=== PATIENT | female | born 1955 | race Caucasian/White ===

== ENCOUNTER 2017-05-26 07:07 | Day surgery (SDC) | payer BC ==
[2017-05-24 16:11] LABS: Urine RBC None Seen /hpf (0 - 4)
[2017-05-24 16:30] LABS: Basophils # (auto) 0.1 uL; Basophils % (auto) 0.9 % (0.0-2.0); CONDITION Y; Eosinophils # (auto) 0.3 uL; Eosinophils % (auto) 3.3 % (0.0-7.0); Hematocrit 42.6 % (36.0-46.0); Hemoglobin 14.5 g/dL (12.2-16.2); Lymphocytes # (auto) 2.3 uL; Lymphocytes % (auto) 25.6 % (10.0-50.0); Mean Corpuscular Hemoglobin 29.3 pg (28.0-32.0); Mean Corpuscular Hgb Conc. 34.1 g/dL (32.0-36.0); Mean Corpuscular Volume 85.8 fL (80.0-100.0); Mean Platelet Volume 9.4 fL (7.4-10.4); Monocytes # (auto) 0.7 uL; Monocytes % (auto) 8.2 % (0.0-12.0); Neutrophils # (auto) 5.5 uL; Platelet Count (auto) 310 10^3/uL (140-450); Red Cell Distribution Width 14.3 % (11.6-16.0); White Blood Cell 8.9 10^3/uL (4.4-10.8)
[2017-05-24 16:45] LABS: Urine Bilirubin Negative (Negative); Urine Blood Negative /uL (Negative); Urine Color Colorless (Yellow); Urine Glucose Normal (Normal); Urine Ketone Negative (Negative); Urine Nitrite Negative (Negative); Urine Urobilinogen Normal (Negative); Urine pH 5.5 (5.0-8.0)
[2017-05-24 16:55] LABS: INR 0.91 (0.9-1.15); Partial Thromboplastin Time 26.6 sec (22.64-33.71); Prothrombin Time 9.9 sec (9.37-12.3)
[2017-05-24 16:56] LABS: Albumin 4.1 g/dL (3.4-5.0); BUN/Creatinine Ratio 16.2; Bilirubin, Total 0.4 mg/dL (0.2-1.0); Calcium 9.5 mg/dL (8.5-10.1); Potassium 3.5 mmol/L (3.5-5.1); Total Protein 7.9 g/dL (6.4-8.2)
[~2017-05-26] VITALS: Ht 172.7 cm; Wt 84.4 kg
[~2017-05-26 07:07] MED LIST: ACET-1304 PO; ALBUAER3 IN; ASCO100076 PO; BACL10TA PO; BECL80AE9 IN; CYCL0.05 EACHEYE; ERGO1CAP6 PO; FERR18TA2 PO; GABA-497 PO; HYDR-4663 PO; IBUP200T76 PO; LIDO5DIS21 TOP; LISI-285 PO; MONT10TA23 PO; ROSU5TAB5 PO
[2017-05-26] MEDS ORDERED: LEVOFLOXACIN 500MG 100 ML IV ONE (07:59)
[2017-05-26] MEDS ORDERED: ONDANSETRON HCL 4 MG/2 ML VIAL ONE (09:03)
[2017-05-26] MEDS ORDERED: PROPOFOL 10 MG/ML 20 ML IV ONE (09:03)
[2017-05-26] MEDS ORDERED: MIDAZOLAM HCL 1MG/1ML-2 ML VIAL ONE (09:03)
[2017-05-26] MEDS ORDERED: fentaNYL CITRATE 100 MCG/2 ML VL ONE (09:03)
[2017-05-26] MEDS ORDERED: LIDOCAINE HCL 2 %PF INJ 10ML AMP IJ ONE (09:03)
[2017-05-26] MEDS ORDERED: SODIUM CHLORIDE LOCK 20 ML ONE (09:03)
[2017-05-26] MEDS ORDERED: LIDOCAINE 1% HCL (LOCAL ANESTH.) INJ 20ML MDV ONE (09:43)
[2017-05-26] MEDS ORDERED: CONJ ESTROGENS 0.625MG/GM VAG CRM 30GM PV ONE (09:44)
[2017-05-26] MEDS ORDERED: LIDOCAINE W/ EPINEPHRINE 1 % INJ 30ML ONE (09:44)
[2017-05-26] MEDS ORDERED: CLINDAMYCIN 600MG IV 50 ML IV ONE (09:56)
[2017-05-26] MEDS ORDERED: METOCLOPRAMIDE HCL 5MG/ml INJ 2ml VIAL IV ONE (10:15)
[2017-05-26] MEDS ORDERED: KETOROLAC TROMETH 30 MG/ML 1ML VIAL IV ONE (10:15)
[2017-05-26] MEDS: HYDROmorphone HCL 2 MG/ML VL IV PRN ×2 (10:55→11:15)
[2017-05-26 12:00] VITALS: BP 127/87
== END 2017-05-26 12:11 | disposition home or self-care (01) ==
LOC: SUR 07:07
PROVIDERS: ATTEND Urology
DX: N89.8 Other specified noninflammatory disorders of vagina (principal); N81.10 Cystocele, unspecified; J45.909 Unspecified asthma, uncomplicated; K21.9 Gastro-esophageal reflux disease without esophagitis; D64.9 Anemia, unspecified; Z90.710 Acquired absence of both cervix and uterus; I10 Essential (primary) hypertension; I49.9 Cardiac arrhythmia, unspecified; E78.5 Hyperlipidemia, unspecified; I49.3 Ventricular premature depolarization; F32.9 Major depressive disorder, single episode, unspecified; M19.90 Unspecified osteoarthritis, unspecified site; Z85.3 Personal history of malignant neoplasm of breast; Z90.49 Acquired absence of other specified parts of digestive tract; Z90.13 Acquired absence of bilateral breasts and nipples; Z88.2 Allergy status to sulfonamides
CPT/HCPCS: 36415; 57106; 57240; 57282; 80053; 81001; 85025; 85610; 85730; 87086; 88302; J1170; J1956; J2001; J2250; J2405; J2704; J2765; J3010; J3490

== ENCOUNTER 2017-06-13 21:51 | Inpatient (IN) | payer BC ==
[~2017-06-13] VITALS: Ht 172.7 cm; Wt 84.1 kg
[2017-06-13 23:32] LABS: Basophils # (auto) 0.1 uL; Basophils % (auto) 0.5 % (0.0-2.0); CONDITION Y; Eosinophils # (auto) 0.3 uL; Eosinophils % (auto) 1.9 % (0.0-7.0); Hematocrit 42.1 % (36.0-46.0); Hemoglobin 13.9 g/dL (12.2-16.2); Lymphocytes % (auto) 14.2 % (10.0-50.0); Mean Corpuscular Hemoglobin 28.9 pg (28.0-32.0); Mean Corpuscular Volume 87.4 fL (80.0-100.0); Mean Platelet Volume 8.9 fL (7.4-10.4); Monocytes # (auto) 0.9 uL; Monocytes % (auto) 6.5 % (0.0-12.0); Neutrophils # (auto) 10.9 uL; Neutrophils % (auto) 76.9 % (37.0-80.0); Platelet Count (auto) 312 10^3/uL (140-450); Red Cell Distribution Width 13.8 % (11.6-16.0); White Blood Cell 14.2 10^3/uL (4.4-10.8)
[2017-06-13 23:35] LABS: Urine Bilirubin Negative (Negative); Urine Color Yellow (Yellow); Urine Glucose Normal (Normal); Urine Ketone Negative (Negative); Urine Nitrite Negative (Negative); Urine RBC 11 /hpf (0 - 4); Urine Urobilinogen Normal (Negative); Urine pH 5.5 (5.0-8.0)
[2017-06-13 23:37] LABS: Urine Blood 1+ /uL (Negative)
[2017-06-13 23:56] LABS: Albumin 3.7 g/dL (3.4-5.0); Calcium 8.9 mg/dL (8.5-10.1); Potassium 3.8 mmol/L (3.5-5.1)
[2017-06-13 23:59] LABS: Bilirubin, Total 0.4 mg/dL (0.2-1.0); Total Protein 7.5 g/dL (6.4-8.2)
[2017-06-14] MEDS ORDERED: PANTOPRAZOLE 40 MG/10 ML VIAL IV STA (03:09)
[2017-06-14] MEDS ORDERED: ONDANSETRON HCL 4 MG/2 ML VIAL IV ONE (03:15)
[2017-06-14] MEDS ORDERED: HYDROmorphone HCL 2 MG/ML VL IV ONE (03:15)
[2017-06-14 04:04] LABS: INR 0.92 (0.9-1.15); Partial Thromboplastin Time 26.9 sec (22.64-33.71)
[2017-06-14 04:12] LABS: Amylase 52 U/L (25-115)
[2017-06-14] MEDS ORDERED: cefTRIAXone 1GM/50ML D5W 50 ML IV ONE (06:15)
[2017-06-14] MEDS ORDERED: TEMAZEPAM 15 MG CAP PO PRN (07:15)
[2017-06-14] MEDS ORDERED: KETOROLAC TROMETH 30 MG/ML 1ML VIAL IV PRN (07:15)
[2017-06-14] MEDS ORDERED: ACETAMINOPHEN 325 MG TAB PO PRN (07:15)
[2017-06-14] MEDS ORDERED: ALBUTEROL SULF 2.5 MG/0.5ML(0.5%) NEB SOLN NEB PRN (07:15)
[2017-06-14] MEDS ORDERED: ONDANSETRON HCL 4 MG/2 ML VIAL IV PRN (07:15)
[2017-06-14] MEDS: SODIUM CHLORIDE 0.9% 1,000 ML IV SCH ×2 (07:30→20:24)
[2017-06-14] MEDS: LEVOFLOXACIN 500MG 100 ML IV SCH (07:31)
[2017-06-14] MEDS ORDERED: HCTZ 25 MG TAB PO SCH (10:00)
[2017-06-14] MEDS: ENOXAPARIN SOD 40 MG/0.4 ML SYRINGE SC SCH ×2 (10:00→10:20)
[2017-06-14 10:02] VITALS: BP 131/78
[2017-06-14] MEDS: FAMOTIDINE 20 MG TAB PO SCH ×2 (10:19→21:26)
[2017-06-14] MEDS: MONTELUKAST SODIUM 10 MG TAB PO SCH (10:19)
[2017-06-14] MEDS: LISINOPRIL 5 MG TAB PO SCH (10:20)
[2017-06-14] MEDS: HYDROcodone-ACET 5/325MG TAB PO PRN ×2 (10:45→21:26)
[2017-06-14 12:50] VITALS: BP 115/54
[2017-06-14] MEDS ORDERED: HYDROmorphone HCL 2 MG/ML VL IV PRN (15:30)
[2017-06-14] MEDS: GABAPENTIN 300 MG CAP PO SCH ×2 (16:21→21:26)
[2017-06-14 16:49] VITALS: BP 99/53
[2017-06-14 18:52] VITALS: BP 131/78
[2017-06-14] MEDS: ATORVASTATIN 20 MG TAB PO SCH (21:26)
[2017-06-14] MEDS: hydrOXYzine PAMOATE 25 MG CAP PO PRN (21:26)
[2017-06-14 22:00] VITALS: BP_SYST 111; BP_SYST 128; BP_DIAS 64; BP_DIAS 73
[2017-06-14] MEDS ORDERED: CRESTOR 5 MG PO SCH (22:00)
[2017-06-15] VITALS (7 sets, daily range): BP systolic 95–131; BP diastolic 52–78
[2017-06-15 05:19] LABS: Basophils # (auto) 0 uL; Basophils % (auto) 0.8 % (0.0-2.0); CONDITION Y; Eosinophils # (auto) 0.4 uL; Eosinophils % (auto) 6.2 % (0.0-7.0); Hematocrit 38.9 % (36.0-46.0); Lymphocytes # (auto) 2.4 uL; Lymphocytes % (auto) 40.7 % (10.0-50.0); Mean Corpuscular Hemoglobin 29.2 pg (28.0-32.0); Mean Corpuscular Hgb Conc. 33.5 g/dL (32.0-36.0); Mean Corpuscular Volume 87.2 fL (80.0-100.0); Mean Platelet Volume 9.2 fL (7.4-10.4); Monocytes # (auto) 0.6 uL; Monocytes % (auto) 10.2 % (0.0-12.0); Neutrophils # (auto) 2.4 uL; Neutrophils % (auto) 42.1 % (37.0-80.0); Platelet Count (auto) 277 10^3/uL (140-450); Red Cell Distribution Width 14.1 % (11.6-16.0); White Blood Cell 5.8 10^3/uL (4.4-10.8)
[2017-06-15 05:32] LABS: Albumin 3.3 g/dL (3.4-5.0); Calcium 8.8 mg/dL (8.5-10.1); Potassium 4.2 mmol/L (3.5-5.1)
[2017-06-15 05:35] LABS: BUN/Creatinine Ratio 17.1
[2017-06-15 05:38] LABS: Bilirubin, Total 0.4 mg/dL (0.2-1.0); Total Protein 6.6 g/dL (6.4-8.2)
[2017-06-15] MEDS: GABAPENTIN 300 MG CAP PO SCH ×3 (06:06→21:45)
[2017-06-15] MEDS: LEVOFLOXACIN 500MG 100 ML IV SCH (08:56)
[2017-06-15] MEDS: ENOXAPARIN SOD 40 MG/0.4 ML SYRINGE SC SCH (10:00)
[2017-06-15] MEDS: LISINOPRIL 5 MG TAB PO SCH (11:03)
[2017-06-15] MEDS: HYDROcodone-ACET 5/325MG TAB PO PRN ×2 (11:03→23:27)
[2017-06-15] MEDS: FAMOTIDINE 20 MG TAB PO SCH ×2 (11:03→21:45)
[2017-06-15] MEDS: MONTELUKAST SODIUM 10 MG TAB PO SCH (11:04)
[2017-06-15] MEDS: LORazepam 0.5 MG TAB PO PRN ×2 (13:58→23:25)
[2017-06-15] MEDS: ATORVASTATIN 20 MG TAB PO SCH (21:46)
[2017-06-15] MEDS: hydrOXYzine PAMOATE 25 MG CAP PO PRN (23:26)
[2017-06-16 05:00] VITALS: BP 135/81
[2017-06-16] MEDS: GABAPENTIN 300 MG CAP PO SCH ×2 (06:07→13:59)
[2017-06-16 07:30] VITALS: BP 112/52
[2017-06-16] MEDS: LEVOFLOXACIN 500MG 100 ML IV SCH (09:12)
[2017-06-16] MEDS: LISINOPRIL 5 MG TAB PO SCH (09:20)
[2017-06-16] MEDS: ENOXAPARIN SOD 40 MG/0.4 ML SYRINGE SC SCH (09:21)
[2017-06-16] MEDS: FAMOTIDINE 20 MG TAB PO SCH (09:21)
[2017-06-16] MEDS: MONTELUKAST SODIUM 10 MG TAB PO SCH (09:21)
[2017-06-16] MEDS: OXYCODONE W/ ACETAMINOPHEN 5/325MG TABLET PO PRN ×2 (09:29→13:59)
[2017-06-16] MEDS ORDERED: OXYCODONE W/ ACETAMINOPHEN 5/325MG TABLET PO ONE (09:30)
[2017-06-16 10:38] LABS: Basophils # (auto) 0 uL; Basophils % (auto) 0.7 % (0.0-2.0); CONDITION Y; Eosinophils # (auto) 0.3 uL; Hematocrit 43.3 % (36.0-46.0); Hemoglobin 14.7 g/dL (12.2-16.2); Lymphocytes # (auto) 1.5 uL; Mean Corpuscular Hemoglobin 29.3 pg (28.0-32.0); Mean Corpuscular Hgb Conc. 33.8 g/dL (32.0-36.0); Mean Corpuscular Volume 86.6 fL (80.0-100.0); Mean Platelet Volume 8.9 fL (7.4-10.4); Monocytes # (auto) 0.4 uL; Monocytes % (auto) 6.7 % (0.0-12.0); Neutrophils % (auto) 63.6 % (37.0-80.0); Platelet Count (auto) 317 10^3/uL (140-450); Red Cell Distribution Width 14.1 % (11.6-16.0); White Blood Cell 6.2 10^3/uL (4.4-10.8)
[2017-06-16 12:11] VITALS: BP 112/69
[2017-06-16] MEDS ORDERED: NITR-48 PO (13:24)
[2017-06-16 14:22] LABS: BUN/Creatinine Ratio 16.3; Calcium 9.2 mg/dL (8.5-10.1); Potassium 3.6 mmol/L (3.5-5.1)
[2017-06-16 16:00] VITALS: BP 104/67
[2017-06-16 17:55] VITALS: BP 128/61
== END 2017-06-16 18:55 | disposition home or self-care (01) | DRG 690 ==
LOC: ER 21:58 → TELE 21:59 → CENTRAL 06-14 08:30
PROVIDERS: ADMIT Nurse Practitioner; ATTEND Internal Medicine
DX: N39.0 Urinary tract infection, site not specified (principal); J45.909 Unspecified asthma, uncomplicated; I10 Essential (primary) hypertension; J44.9 Chronic obstructive pulmonary disease, unspecified; F41.0 Panic disorder [episodic paroxysmal anxiety]; F41.9 Anxiety disorder, unspecified; E78.5 Hyperlipidemia, unspecified; R16.0 Hepatomegaly, not elsewhere classified; Z88.5 Allergy status to narcotic agent; Z90.710 Acquired absence of both cervix and uterus; Z88.0 Allergy status to penicillin; Z88.2 Allergy status to sulfonamides; Z88.8 Allergy status to other drugs, medicaments and biological substances; Z79.899 Other long term (current) drug therapy
CPT/HCPCS: 36415; 74176; 76705; 80048; 80053; 81001; 82150; 83690; 85025; 85610; 85730; 87086; 93005; 96365; 96368; 96375; C9113; J0696; J1956; J2405